=== PATIENT | female | born 1990 | race Caucasian/White ===

== ENCOUNTER 2016-08-19 20:34 | Emergency (ER) | payer MEDICAID ==
[2016-08-19] MEDS ORDERED: MAG-AL PLUS XS SUSP 30 ML UDC ONE (21:07)
[2016-08-19] MEDS ORDERED: LIDOCAINE VISCOUS 2% 15 ML UDC ONE (21:07)
[2016-08-19] MEDS ORDERED: FAMOTIDINE IN SALINE, ISO-OSM 50 ML IV ONE (21:07)
[2016-08-19 21:16] LABS: HEMOGLOBIN 15.9 g/dL (12.0-16.0); MEAN PLATELET VOLUME 7.7 fL (7.4-10.4); NEUTROPHILS 45.2 % (54.0-75.0); RED CELL DISTRIBUTION WIDTH 11.9 % (11.5-14.5)
[2016-08-19 21:19] LABS: BASOPHIL# 0.1 X 10^3uL (0.0-0.1); BASOPHILS 0.8 % (0.0-2.0); EOSINOPHILS 2.7 % (0.0-6.0); EOSINOPHILS# 0.2 X 10^3uL (0.0-0.4); HEMATOCRIT 46.2 % (36.0-48.0); LYMPHOCYTES 43.1 % (20.0-40.0); LYMPHOCYTES# 2.8 X 10^3uL (0.8-3.8); MEAN CELL VOLUME 92.1 fL (84.0-102.0); MEAN CORPUS. HGB CONCENTRATION 34.4 g/dL (32.0-36.0); MEAN CORPUSCULAR HEMOGLOBIN 31.7 pg (29.0-35.0); MONOCYTES 8.2 % (2.0-10.0); MONOCYTES# 0.5 X 10^3uL (0.2-1.0); NEUTROPHILS# 2.8 X 10^3uL (2.6-6.7); PLATELET COUNT 225 X 10^3uL (130-440); RED BLOOD COUNT 5.01 X 10^6uL (4.20-6.10); WHITE BLOOD COUNT 6.4 X 10^3uL (3.9-10.7)
[2016-08-19 21:22] LABS: ALBUMIN 4.7 g/dL (3.5-5.0); ALKALINE PHOSPHATASE 63 U/L (38-126); ALT 57 U/L (9-52); AST 38 U/L (14-36); BILIRUBIN, DIRECT 0.5 mg/dL (0.0-0.4); BILIRUBIN, TOTAL 1.4 mg/dL (0.2-1.3); BLOOD UREA NITROGEN 15 mg/dL (7-17); C-REACTIVE PROTEIN 5.3 mg/L (<10.0); CALCIUM 9.7 mg/dL (8.4-10.2); CHLORIDE 104 mmol/L (98-107); CREATININE 0.8 mg/dL (0.5-1.0); EST GLOMERULAR FILTRATION RATE > 60 mL/min; GLUCOSE 92 mg/dL (70-100); LIPASE 91 U/L (23-300); POTASSIUM 3.7 mmol/L (3.5-5.1); SODIUM 144 mmol/L (137-145)
[2016-08-19] MEDS ORDERED: KETOROLAC TROMETHAMINE 30 MG/ML VIAL ONE (21:33)
--- NOTE | 2016-08-19 23:13 | ER PHYSICIAN DOCUMENTATION ---
Physician Documentation [facility] Name:Chante Dietrich Age:26 yrs Sex:Female :1990 Arrival Date:08/19/2016 Time:20:34 Bed1 Private MD:Shubham Leija ED, [place] Disposition: 08/19/16 23:07 Discharged to Home/Self Care. Impression: Abdominal Pain, Generalized. - Condition is Good. - Discharge Instructions: Abdomen - ABDOMINAL PAIN, Unknown Cause, (Female). - Medical Reconciliation form form. - Follow up: Shubham Leija MD; When: Tomorrow; Reason: Continuance of care. - Problem is an ongoing problem. - Symptoms are unchanged. HPI: 08/19 23:05 This 26 yrs old Female presents to ER via Walk In with complaints of Chest sc Pressure. 23:05 The patient presents with abdominal pain in the upper abdomen, in the right upper sc quadrant, in the left upper quadrant. Onset: The symptoms/episode began/occurred 1 month(s) ago. The symptoms do not radiate. Associated signs and symptoms: none. The symptoms are described as vague. Modifying factors: The symptoms are alleviated by nothing. Historical: - Allergies: Codeine; - Home Meds: 1. Vitamin Oral 2. iodine oral - PMHx: POLYCYSTIC OVARIAN DISEASE; - PSHx: ; - Tetanus: < 10 years. - Ebola Screening: : Patient negative for fever greater than or equal to 101.5 degrees Fahrenheit, and additional compatible Ebola Virus Disease symptoms. - Immunization history: Flu Vaccine >1 year. - Social history: Smoking status: Patient states former smoker of tobacco. ROS: 23:06 Constitutional: Negative for fever, chills, and weight loss. sc Eyes: Negative for injury, pain, redness, and discharge. ENT: Negative for injury, pain, and discharge. Neck: Negative for injury, pain, and swelling. Cardiovascular: Negative for chest pain, palpitations, and edema. Respiratory: Negative for shortness of breath, cough, wheezing, and pleuritic chest pain. Back: Negative for injury and pain. MS/Extremity: Negative for injury and deformity. Skin: Negative for injury, rash, and discoloration. 23:06 Neuro: Negative for headache, weakness, numbness, tingling, and seizure. sc 23:06 Abdomen/GI: Positive for abdominal pain. Exam: Constitutional: This is a well developed, well nourished patient who is awake, alert, and in no acute distress. Head/Face: Normocephalic, atraumatic. Eyes: Pupils equal round and reactive to light, extra-ocular motions intact. Lids and lashes normal. Conjunctiva and sclera are non-icteric and not injected. Cornea within normal limits. Periorbital areas with no swelling, redness, or edema. ENT: Nares patent. No nasal discharge, no septal abnormalities noted. Tympanic membranes are normal and external auditory canals are clear. Oropharynx with no redness, swelling, or masses, exudates, or evidence of obstruction, uvula midline. Mucous membranes moist. Neck: Trachea midline, no thyromegaly or masses palpated, and no cervical lymphadenopathy. Supple, full range of motion without nuchal rigidity, or vertebral point tenderness. No meningismus. Chest/axilla: Normal chest wall appearance and motion. Nontender with no deformity. No lesions are appreciated. Cardiovascular: Regular rate and rhythm with a normal S1 and S2. No gallops, murmurs, or rubs. Normal PMI, no JVD. No pulse deficits. Respiratory: Lungs have equal breath sounds bilaterally, clear to auscultation and percussion. No rales, rhonchi or wheezes noted. No increased work of breathing, no retractions or nasal flaring. Back: No spinal tenderness. No costovertebral tenderness. Full range of motion. Skin: Warm, dry with normal turgor. Normal color with no rashes, no lesions, and no evidence of cellulitis. MS/ Extremity: Pulses equal, no cyanosis. Neurovascular intact. Full, normal range of motion, negative Homans's, calves equal bilaterally. 23:06 Neuro: Awake and alert, GCS 15, oriented to person, place, time, and situation. dc Cranial nerves II-XII grossly intact. Motor strength 5/5 in all extremities. Sensory grossly intact. Cerebellar exam normal. Normal gait. 23:06 Abdomen/GI: Inspection: abdomen appears normal, Bowel sounds: normal, Palpation: mild abdominal tenderness, in all quadrants. Vital Signs: 20:45 BP 115 / 86; Pulse 80; Resp 18; Temp 97.8; Pulse Ox 100% on R/A; Weight 90.72 kg; em1 Height 5 ft. 9 in. (175.26 cm); Pain 6/10; 22:25 BP 106 / 65; Pulse 71; Resp 15; Pulse Ox 95% on R/A; Pain 0/10; rh 20:45 Body Mass Index 29.53 (90.72 kg, 175.26 cm) em1 MDM: 20:43 Patient medically screened. dc 23:06 Differential diagnosis: appendicitis, bowel obstruction, cholecystitis, non-specific sc abd pain. Data reviewed: vital signs, nurses notes, lab test result(s), radiologic studies, CT scan, and as a result, I will discharge patient. Counseling: I had a detailed discussion with the patient and/or guardian regarding: the historical points, exam findings, and any diagnostic results supporting the discharge/admit diagnosis, lab results, radiology results, the need for outpatient follow up, with the patient's primary care provider. 23:08 ED course: pain somewhat improved with toradol, no change with gi cocktail and pepcid, dc no radiologist reading on abd ct yet, pt to follow up with Dr. Leija tomorrow, liver enzymes still mildly elevated. 08/19 21:17 Order name: HCG, SERUM EDHI 08/19 21:22 Interpretation: Normal. dc 02 21:20 Order name: CBC AUTO DIF, MDIF/RMOR IF IND EDHI 02 21:22 Interpretation: Normal. dc 08/19 21:22 Order name: BASIC METABOLIC PANEL; Complete Time: 21:23 EDHI 08/19 21:23 Interpretation: Normal. dc 08/19 21:22 Order name: HEPATIC PANEL; Complete Time: 21:23 EDMS 02 21:23 Interpretation: Abnormal: elevated enzymes. dc 08/19 21:22 Order name: LIPASE; Complete Time: 21:23 EDHI 02 21:23 Interpretation: Normal. dc 08/19 21:22 Order name: C-REACTIVE PROTEIN; Complete Time: 21:23 EDHI 08/19 21:23 Interpretation: Normal. dc 08/19 20:53 Order name: Urine Dip; Complete Time: 21:52 dc Dispensed Medications: 20:55 Drug: NS 0.9% 1000 ml; Route: IV; Rate: bolus; Site: right antecubital; rh 21:51 Follow up: IV Status: Completed infusion; IV Intake: 1000ml rh 21:01 Drug: GI Cocktail w/o Donnatol - (Maalox Suspension 30 ml, Lidocaine Liquid 2 % 15 ml); rh Route: PO; 21:51 Follow up: Response: No change in condition rh 21:01 Drug: Pepcid 20 mg; Route: IVPB; Site: right antecubital; rh 21:26 Follow up: IV Status: Completed infusion; IV Intake: 50ml rh 21:26 Drug: Toradol 30 mg; Route: IVP; Site: right antecubital; rh 21:52 Follow up: Response: Pain is decreased Point of Care Testing: Urine Dip: 21:50 pH: 6.5; ; Specific [place]: 1.010; Ketones: Negative; Glucose: Negative; Protein: rh Negative; Leukocytes: Negative; Nitrite: Negative ; Blood: Negative; Bilirubin: Negative ; Urobilinogen: Normal Signatures: Nicholas Sanchez MD MD sc Hofsess, Rachel
--- NOTE | 2016-08-19 23:13 | ER NURSING DOCUMENTATION ---
Nurse's Notes [facility] Name:Chante Dietrich Age:26 yrs Sex:Female :1990 Arrival Date:08/19/2016 Time:20:34 Bed1 Private MD:Shubham Leija Diagnosis:Abdominal Pain, Generalized Presentation: 08/19 20:36 Acuity: JOSE L 3 rh 20:45 Presenting complaint: Patient states: Pt c/o upper right and left abdominal pain, rh states both her spleen and liver are enlarged. Pt is seeing Dr. Leija, had an ultra sound done last Friday and is supposed to get a CT sometime this week. Transition of care: Home. 20:45 Method Of Arrival: Walk In Triage Assessment: 20:48 General: Appears in no apparent distress, Behavior is cooperative. Pain: Complains of rh pain in right upper quadrant and left upper quadrant. Neuro: Level of Consciousness is awake, alert, obeys commands. Cardiovascular: Capillary refill < 3 seconds Chest pain is denied. Respiratory: Airway is patent Respiratory effort is even, unlabored. GI: Abdomen is non- distended Abdomen is tender to palpation Denies diarrhea, nausea, vomiting. : Denies burning with urination. Derm: Skin is intact, is healthy with good turgor, Skin is pink, warm & dry. Historical: - Allergies: Codeine; - Home Meds: 1. Vitamin Oral 2. iodine oral - PMHx: POLYCYSTIC OVARIAN DISEASE; - PSHx: ; - Tetanus: < 10 years. - Ebola Screening: : Patient negative for fever greater than or equal to 101.5 degrees Fahrenheit, and additional compatible Ebola Virus Disease symptoms. - Immunization history: Flu Vaccine >1 year. - Social history: Smoking status: Patient states former smoker of tobacco. Screenin:49 Infectious Disease Risk None. Abuse screen: Denies threats or abuse. Denies injuries rh from another. Nutritional screening: No deficits noted. Assessment: 20:49 See Triage Assessment done by same RN. Vital Signs: 20:45 BP 115 / 86; Pulse 80; Resp 18; Temp 97.8; Pulse Ox 100% on R/A; Weight 90.72 kg; em1 Height 5 ft. 9 in. (175.26 cm); Pain 6/10; 22:25 BP 106 / 65; Pulse 71; Resp 15; Pulse Ox 95% on R/A; Pain 0/10; rh 20:45 Body Mass Index 29.53 (90.72 kg, 175.26 cm) em1 ED Course: 20:36 Patient arrived in ED. em2 20:36 Inessa Carpio MD is Private Physician. em2 20:36 Ariella England is Primary Nurse. rh 20:36 Triage completed. rh 20:43 Nicholas Sanchez MD is Attending Physician. sc 20:49 Valuables Remains with patient Patient has correct armband on for positive rh identification. Bed in low position. Call light in reach. 20:54 Inserted saline lock: 20 gauge in right antecubital area and blood collected. em1 21:[address] ms 21:59 Shubham Leija MD is Private Physician. em2 22:[address] back [address]. ms 23:07 Shubham Leija MD is Referral Physician. sc Administered Medications: 20:55 Drug: NS 0.9% 1000 ml; Route: IV; Rate: bolus; Site: right antecubital; rh 21:51 Follow up: IV Status: Completed infusion; IV Intake: 1000ml rh 21:01 Drug: GI Cocktail w/o Donnatol - (Maalox Suspension 30 ml, Lidocaine Liquid 2 % 15 ml); rh Route: PO; 21:51 Follow up: Response: No change in condition rh 21:01 Drug: Pepcid 20 mg; Route: IVPB; Site: right antecubital; rh 21:26 Follow up: IV Status: Completed infusion; IV Intake: 50ml rh 21:26 Drug: Toradol 30 mg; Route: IVP; Site: right antecubital; rh 21:52 Follow up: Response: Pain is decreased Point of Care Testing: Urine Dip: 21:50 pH: 6.5; ; Specific [place]: 1.010; Ketones: Negative; Glucose: Negative; Protein: rh Negative; Leukocytes: Negative; Nitrite: Negative ; Blood: Negative; Bilirubin: Negative ; Urobilinogen: Normal Intake: 21:26 IV: 50ml; Total: 50ml. rh 21:51 IV: 1000ml; Total: 1050ml. rh Outcome: 23:07 Discharge ordered by . sc 23:12 Discharged to home ambulatory. rh 23:12 Condition: stable 23:12 Discharge Assessment: Patient awake, alert and oriented x 3. No cognitive and/or functional deficits noted. Patient verbalized understanding of disposition instructions. 23:12 Discharge instructions given to patient, Instructed on discharge instructions, follow up and referral plans. Demonstrated understanding of instructions. 23:12 IV D/Carroll 23:12 Patient left the ED. 08/20 13:58 Discharge F/U Call: Spoke with: patient. Overall Care on a scale of 1-10 with 10 lpr being the best care, you rate our care as: Other comments: Info relayed to Anna LINDQUIST director Signatures: Doreen Hardy, GEO RN Nicholas Wallace MD MD sc Strickland, Mary ms Roberts, Leslie, RN RN lpr Meinking-tech, Sandra-tech em1 Meinking-reg, Sandra-reg em2 Ariella England
--- NOTE | 2016-08-21 07:52 | CT REPORT ---
ADDENDUM #1 ADDENDUM: Review of the contrasted CT scan of the abdomen and pelvis shows normal enhancement within the portal vein. The hepatic veins also show normal enhancement. The IVC shows normal enhancement. No findings of hepatic vein mass , obstruction, or Budd-Chiari syndrome. Final Electronic Signature: This report was electronically signed by Matteo Oscar MD on 08/20/2016 3:57 PM. [email or web address] / ORIGINAL REPORT EXAMINATION: CT OF THE ABDOMEN AND PELVIS WITH IV CONTRAST TECHNIQUE: Transaxial images of the abdomen and pelvis were obtained from the diaphragmatic dome to the ischial tuberosity according to routine abdomen and pelvis protocol, following the administration of intravenous contrast material. This examination was performed using automated exposure control, adjustment of mA or kV according to patient size, and/or use of iterative reconstruction technique. COMPARISON: None FINDINGS: Liver: The right lobe of the liver is enlarged, measuring 21 cm craniocaudad, without evidence of worrisome focal lesions on this exam. Patent portal veins. Bile ducts: No intra- or extra-hepatic dilation. Gallbladder: No gallstones or wall thickening. Pancreas: Normal. Spleen: Spleen is mildly enlarged measuring 14.8 cm craniocaudal. Adrenals: Normal adrenal glands. Kidneys/Urinary Bladder: Kidneys appear normal without hydronephrosis or obstructive nephrolithiasis. Urinary bladder is thin walled and distended. Reproductive organs: Uterus and adnexa appear normal. GI tract/Mesentery: Normal appendix. No obstruction. Vascular: Aorta and IVC appear normal. Peritoneum/retroperitoneum: No free fluid or free air. Lymph Nodes: No significant lymphadenopathy in the abdomen or pelvis. Bones: Bones appear normal without evidence of acute fractures. Superficial Soft Tissue: Normal. Lower chest: The demonstrated lung bases are clear. IMPRESSION: 1. Hepatosplenomegaly. 2. No other CT evidence of acute abnormalities in the abdomen or pelvis. Final Electronic Signature: This report was electronically signed by Gunner Ovalle MD on 08/19/2016 11:44 PM. kriss / KAY
== END 2016-08-19 23:12 | disposition home or self-care (01) ==
LOC: ER 20:34
DX: R10.84 Generalized abdominal pain (principal); R74.8 Abnormal levels of other serum enzymes
CPT/HCPCS: 74177; 80048; 80076; 83690; 84703; 85025; 86140; 96361; 96365; 96375; 99284; J1885